=== PATIENT | female | born 1990 | race African-American/Black ===

== ENCOUNTER 2017-03-22 02:36 | Emergency (ER) | payer MEDICAID ==
[~2017-03-22] VITALS: Ht 162.6 cm; Wt 55.0 kg
[2017-03-22 04:15] VITALS: BP 145/78
== END 2017-03-22 04:30 | disposition home or self-care (01) ==
LOC: ER 02:36
DX: Z00.00 Encounter for general adult medical examination without abnormal findings (principal)
CPT/HCPCS: 99283; Z7610